=== PATIENT | female | born 1975 | race Hispanic/Latino ===

== ENCOUNTER 2025-06-09 15:35 | Emergency (ER) | payer SELFPAY ==
[2025-06-09 17:42] LABS: #Basophils 0.1 thou/uL (0.0-0.2); #Eosinophils 0.1 thou/uL (0.0-0.7); #Lymphocytes 1.3 thou/uL (1.20-3.40); #Monocytes 0.4 thou/uL (0.11-0.59); #Neutrophils 7.5 thou/uL (1.40-6.50); %Basophils 0.7 % (0.0-1.0); %Eosinophils 1.1 % (0.0-10.0); %Lymphocytes 13.6 % (21.0-51.0); %Monocytes 3.8 % (0.0-10.0); %Neutrophils 80.9 % (42.0-75.0); Hematocrit 39.6 % (36.0-47.0); Hemoglobin 12.9 g/dL (12.0-16.0); Mean Corpuscular Hemoglobin 30.2 pg (27.0-31.0); Mean Corpuscular Volume 93.1 fl (78.0-98.0); Platelet Count 344 10x3/uL (130-400); Red Blood Cell (RBC) Count 4.26 mill/uL (4.20-5.40); White Blood Cell (WBC) Count 9.2 10x3/uL (4.8-10.8)
[2025-06-09 17:46] LABS: Pregnancy Test - Urine (BHCG) Negative (Negative); Pregu Control Bar Appear? YES (CONTROL BAR)
[2025-06-09 17:47] LABS: Pregu Control Background? CLEAR/WHITE (CLR/WHITE)
[2025-06-09 17:48] LABS: Glucose, Urine (Dipstick) Negative (Negative); Leukocyte Small (Negative); Protein, Urine (Dipstick) Negative (Neg-Trace); Specific Gravity, Urine 1.010 (1.005-1.030)
[2025-06-09 17:53] LABS: Bacteria/HPF 2+ HPF (None Seen); CAUTI Indications for Culture Acute Hematuria; Urine Culture Reflex No No; WBC/HPF 0-3 HPF (0-3)
[2025-06-09] MEDS ORDERED: Prochlorperazine 10 MG/2 ML VIAL ONE (17:56)
[2025-06-09 17:59] LABS: ALT (SGPT) 8 U/L (Less than 34); AST (SGOT) 14 U/L (11-34); Albumin 3.7 g/dL (3.1-4.5); Alkaline Phosphatase 81 U/L (40-110); Anion Gap 11 mmol/L (10-20); BUN (Urea Nitrogen) 8 mg/dL (7.0-18.7); Bilirubin, Total 0.7 mg/dL (0.3-1.2); CK (CPK) 45 U/L (29-168); Calc. Creatinine Clearance 0 mL/min (70-130); Calcium 9.2 mg/dL (7.8-10.44); Carbon Dioxide 26 mmol/L (22-29); Chloride 108 mmol/L (98-107); Globulin 3.3 g/dL (2.4-3.5); Glucose 109 mg/dL (70-105); Lipase 11 U/L (8-78); Magnesium 1.9 mg/dL (1.6-2.6); Potassium 3.9 mmol/L (3.5-5.1); Sodium 141 mmol/L (136-145)
== END 2025-06-09 19:36 | disposition home or self-care (01) ==
LOC: MADERS 15:35
DX: G43.909 Migraine, unspecified, not intractable, without status migrainosus (principal); R42 Dizziness and giddiness; R11.2 Nausea with vomiting, unspecified; E66.9 Obesity, unspecified; R29.700 NIHSS score 0
CPT/HCPCS: 36415; 80053; 81001; 81025; 82550; 83690; 83735; 85025; 93005; 94760; 96361; 96374; J0780; J7120